=== PATIENT | female | born 1955 | race Caucasian/White ===

== ENCOUNTER 2020-04-27 07:53 | Outpatient (REF) | payer OTHER, SELFPAY ==
[2020-04-27 10:11] LABS: MANUAL DIFF FLAG NO
[2020-04-27 10:19] LABS: Basophils Percent Auto 0.5 % (0-2); Eosinophils Absolute Auto 0.1 X10*3/uL (0.0-0.4); Eosinophils Percent Auto 0.8 % (0-4); Hematocrit 46.3 % (37-47); Imm Gran Abs Auto 0.01 X10*3/uL (0.00-0.03); Imm Gran Pct Auto 0.2 % (0.0-0.4); Lymphocytes Absolute Auto 2.5 X10*3/uL (1.2-4.9); Lymphocytes Percent Auto 38.5 % (20-40); Mean Corpuscular HGB Conc 32.4 g/dl (31.0-35.0); Mean Corpuscular Hemoglobin 28.4 pg (27.0-33.0); Mean Corpuscular Volume 87.7 fL (80-98); Mean Platelet Volume 10.7 fL (9.4-12.3); Monocytes Absolute Auto 0.3 X10*3/uL (0.1-1.2); Monocytes Percent Auto 5.2 % (2-11); Neutrophils Absolute Auto 3.5 X10*3/uL (2.0-8.3); Neutrophils Percent Auto 54.8 % (45-73); Platelet Count 279 X10*3/uL (160-400); Red Blood Count 5.28 X10*6/uL (4.20-5.50); Red Cell Distribution Width 11.8 % (11.0-16.0); White Blood Count 6.4 X10*3/uL (4.8-10.8)
[2020-04-27 10:54] LABS: Free T4 (Free Thyroxine) 0.84 ng/dL (0.71-1.85); Thyroid Stimulating Hormone 3.85 uIU/mL (0.32-4.0); Vitamin D 25-OH Total 14.4 ng/mL (>30)
[2020-04-27 11:02] LABS: Alanine Aminotransferase 18 U/L (0-31); Albumin Level 3.8 g/dL (3.5-5.0); Alkaline Phosphatase 124 U/L (39-117); Anion Gap 13 (12-20); Aspartate Amino Transferase 10 U/L (5-31); Bilirubin Total 0.6 mg/dL (0.0-1.0); Blood Urea Nitrogen 13 mg/dL (9-16); C Reactive Protein 0.45 mg/dL (< or = 0.50); Calcium 8.6 mg/dL (8.4-10.2); Carbon Dioxide 29 mmol/L (22-29); Chloride 101 mmol/L (96-108); Cholesterol 212 mg/dL; Estimated Glomerular Filt Rate > 60; Glucose Fasting 368 mg/dL (60-99); HDL Cholesterol 50 mg/dL; LDL Cholesterol Calculated 134 mg/dl; Potassium 4.2 mmol/l (3.3-5.1); Sodium 139 mmol/L (135-145); Triglycerides 142 mg/dL
== END 2020-04-27 07:54 | disposition home or self-care (01) ==
LOC: HO.10HDL 07:53
PROVIDERS: Visit Provider Internal Medicine
DX: Z00.00 Encounter for general adult medical examination without abnormal findings (principal); I10 Essential (primary) hypertension; R63.4 Abnormal weight loss
CPT/HCPCS: 36415; 80053; 80061; 82306; 84439; 84443; 85025; 86140

== ENCOUNTER 2020-05-09 07:46 | Outpatient (REF) | payer OTHER, SELFPAY ==
[2020-05-09 10:41] LABS: Hemoglobin A1c % > 14.0 %
[2020-05-09 10:49] LABS: Glucose Fasting 340 mg/dL (60-99)
== END 2020-05-09 07:47 | disposition home or self-care (01) ==
LOC: HO.10HDL 07:46
PROVIDERS: Visit Provider Internal Medicine
DX: R73.9 Hyperglycemia, unspecified (principal)
CPT/HCPCS: 36415; 82947; 83036

== ENCOUNTER 2020-07-07 09:10 | Outpatient (REF) | payer OTHER, SELFPAY ==
--- NOTE | ~2020-07-07 | MM_ITS ---
EXAMINATION: MM SCREENING DIGITAL BREAST TOMOSYNTHESIS, BILATERAL CLINICAL INFORMATION: Screening. Asymptomatic. Prior history right LCIS. The lifetime risk of breast cancer based on the Tyrer-Cuzick Model is 40%. COMPARISON: Mammography: 09/27/2016, 07/25/2015 TECHNIQUE: Digital breast tomosynthesis is performed in both the craniocaudal and mediolateral oblique views along with computer-aided detection (CAD). Synthesized 2D images are generated from the tomosynthesis. FINDINGS: There are scattered areas of fibroglandular density (ACR BI-RADS breast composition Category b). There are no significant masses, abnormal calcifications, or other abnormalities. There is some minor scarring from prior lumpectomy central upper right breast on MLO view. Parenchyma is similar to prior exams. The axilla and skin contours are unremarkable. There are no significant changes from prior studies. MM/MM tomosynthesis screening BI IMPRESSION: No mammographic evidence of malignancy. ASSESSMENT: BI-RADS 2: Benign RECOMMENDATION: 1. Routine annual mammography screening. 2. The lifetime risk of breast cancer based on the Tyrer-Cuzick Model is 40%. Additional annual adjunct screening with breast MRI may be of benefit in women with a risk score of 20% or greater. This patient's information was entered into a reminder system with a target due date for their next mammogram.
--- NOTE | ~2020-07-07 | MM_ITS ---
EXAMINATION: BONE DENSITOMETRY CLINICAL INDICATION: Asymptomatic menopausal state. COMPARISON: Previous BD dated 09/27/2016 and baseline BD dated 12/25/2010. TECHNIQUE: Using a [employer] DXA System (software version: 13.1) manufactured by [employer], dual-energy x-ray absorptiometry was performed of the lumbar spine and left hip. The images are of good technical quality. Summary results are attached. FINDINGS: AP SPINE L1-L4 (excluding L3): The data of L1-L4 has been changed to exclude the L3 vertebral body, because degenerative changes at this level may cause overestimation of lumbar spine density. Current: BMD 1.056 g/cm2, Z-score 0.1, T-score -1.0, normal, 6.0% increase from previous, 1.1% increase from baseline (<5% change is not significant). Prior: BMD 0.996 g/cm2. Baseline: BMD 1.045 g/cm2. LEFT FEMUR, NECK: Current: BMD 0.902 g/cm2, Z-score 0.1, T-score -1.0, normal. Prior: BMD 0.944 g/cm2. Baseline: BMD 0.919 g/cm2. LEFT FEMUR, TOTAL: Current: BMD 1.050 g/cm2, Z-score 1.2, T-score 0.3, normal, 2.1% decrease from previous, 1.8% increase from baseline (<5% change is not significant). Prior: BMD 1.072 g/cm2. Baseline: BMD 1.031 g/cm2. IDENTIFIED RISK FACTORS: Menopause. HISTORY OF FRACTURE: None listed. MEDICATIONS: None listed. MM/XR DEXA axial skeleton IMPRESSION: 1. DIAGNOSIS: Normal bone density based on the lowest T-score value of -1.0 in the lumbar spine and femoral neck applying World Health Organization criteria. 2. 10-YEAR FRACTURE RISK PREDICTION, FRAX: Major osteoporotic fracture (clinical spine, forearm, hip or shoulder) 4.3%. Hip fracture 0.3%. 3. Treatment Recommendations: NOF guidelines recommend consideration for treatment in postmenopausal women and men age 50 and older presenting with the following: -A hip or vertebral (clinical or morphometric) fracture. -T-score less than or equal to -2.5 at the femoral neck or spine after appropriate evaluation to exclude secondary causes. -Low bone mass at the hip or spine and a 10-year fracture probability by FRAX of greater than or equal to 3% for hip fracture or greater than or equal to 20% for major osteoporotic fracture based on the [place] adapted WHO algorithm. 4. Other Recommendations: All treatment decisions require clinical judgment and consideration of individual patient factors, including patient preferences, comorbidities, previous drug use, risk factors not captured in the FRAX model (e.g. frailty, falls, vitamin D deficiency, increased bone turnover, interval significant decline in bone density) and possible under or overestimation of fracture risk by FRAX. FUTURE SCAN RECOMMENDATION: People with diagnosed cases of osteoporosis or at high risk for fracture should have regular bone mineral density tests. For patients eligible for Medicare, routine testing is allowed once every 2 years. The testing frequency can be increased to one year for patients who have rapidly progressing disease, those who are receiving or discontinuing medical therapy to restore bone mass, or have additional risk factors.
== END 2020-07-07 09:11 | disposition home or self-care (01) ==
LOC: HO.MAMMO 09:10
PROVIDERS: PCP Internal Medicine; Visit Provider Internal Medicine
DX: Z12.31 Encounter for screening mammogram for malignant neoplasm of breast (principal); Z13.820 Encounter for screening for osteoporosis; Z78.0 Asymptomatic menopausal state
CPT/HCPCS: 77063; 77067; 77080

== ENCOUNTER 2021-05-07 12:50 | Emergency (ER) | payer OTHER, SELFPAY ==
--- NOTE | 2021-05-07 13:09 | ECG_ITS ---
Test Reason : cardiac arrest Blood Pressure : / mmHG Vent. Rate : 102 BPM Atrial Rate : 094 BPM P-R Int : 144 ms QRS Dur : 126 ms QT Int : 382 ms P-R-T Axes : 067 -63 -58 degrees QTc Int : 497 ms Poor data quality Likely sinus rhythm Right bundle branch block Abnormal ECG No previous ECGs available Referred By: Corrie Fernandez Electronically Signed By:Forest Aponte
--- NOTE | 2021-05-07 13:42 | ED_ITS ---
HPI - CPR General Chief Complaint: Cardiac Arrest/CPR Stated Complaint: CARDIAC ARREST Time Seen by Provider: 05/07/21 13:08 Source: EMS Mode of arrival: EMS Limitations: other (ongoing CPR) History of Present Illness HPI narrative: EMS on scene 1211 - luis daniel airway EMS notes: epi several HCO3 calcium BS over 300 PEA then 3 minutes of sinus jasvir given 1 dose of atropine complaint: other (COVID positive x 1 week, shortness of breath x 3 days then collapsed at home) Onset (ago): hour(s) (EMS arrival 1211 so call around noon ) Timing confirmed by: family member Place: home Bystander CPR performed: No AED applied by bystander/upholsterer assembly line: No Shock advised: No Initial findings in the field: unresponsive, no respirations and PEA ROSC in the field: Yes (3 min sinus jasvir) Associated injuries: No Associated symptoms: shortness of breath (COVID x 1 week shortness of breath x 3 days then sudden collapse) Known history of: other (COVID ) Treatments prior to arrival: BMV, other airway device (luis daniel), chest compressions, epinephrine mgs # (6), atropine mgs # (1), sodium bicarbonate and calcium Related Data Allergies Allergy/AdvReac Type Severity Reaction Status Date / Time No Known Allergies Allergy Unverified 01/06/20 15:00 [No Known Allergies*] Review of Systems Review of Systems: ROS unable to be obtained due to ongoing CPR [facility] [place] Past Medical History Medical History Diabetes Social History Social History (Updated 05/07/21 @ 14:00 by Corrie Fernandez DO) Patient Tobacco Use Status: Never used Tobacco Advance Directives: No Advance Directives Information Provided: No Physical Exam Vital Signs: Appearance: Ongoing CPR, mottles in appearance, severe distress Eyes: fixed and dilated ENT: blood noted in airway, luis daniel airway in place Neck: Normal inspection. Neck supple. CVS: no spontaneous pulses, PEA on monitor, mottled appearance Respiratory: No respiratory distress. Breath sounds normal. Abdomen: Soft and no signs of trauma Skin: Cold and dependent lividity - mottled, very pale Extremities: No lower extremity edema. IO in lower leg Neuro: Fixed and dilated, no response to painful stimuli, no gag reflex Course Course Course Narrative: prolonged downtime almost 1.5 hours of CPR with intermittent ROSC then repeatedly losing pulses, attempt at tPa 50mg over 2 min for possible saddle embolus as cause no response and lost pulses again - after discussion with family it was deemed futile after almost 90 minutes of downtime without sustained ROSC - no pulses felt, fixed and dilated, no respirations, no cardiac sounds heard, time of 1336, PEA on monitor. family notified, recent COVID with collapse - I do no suspect trauma no need for ME MDM - Cardiac Arrest/CPR MDM Narrative Medical decision making narrative: 65 yo female with DM here with COVID - shortness of breath for 3 days then sudden collapse in front of family given this suspect massive embolus as cause of cardiac arrest - multiple rounds of epi, atropine with brief ROSC, IVF, intubation, tPa for presumed saddle embolus when unable to sustain pulses - discussion with family regarding care given almost 90 minutes of downtime ECG Data Attestation: I personally reviewed and interpreted this ECG as follows: ECG interpretation date: 05/07/21 ECG interpretation time: 14:32 Interpretation: Rate: 102 Rhythm: 102 undetermined artifact noted axis: left RBBB artifact noted, ST depressions noted laterally, no ARCHIE qtc 497 prior studies: none available The study has been interpreted contemporaneously by me. . Procedures Procedure Narrative Procedure Narrative: initial ECHO showed dilated RV with septal bowing ECHO at 1336 showed slight movement of aortic valve but no organized cont ractility noted Critical Care Time Critical Care Time Critical Care Time: Yes Total Critical Care Time: 60 Attestation: CPR, tPa administration, discussions with family, pharmacy consult I attest to this time spent taking care of the patient Discharge Plan Discharge Clinical Impression: Cardiac arrest Patient Disposition: Date/Time: 05/07/21 13:36
--- NOTE | 2021-05-07 13:46 | PC.NURSE ---
CALL TO [facility].
--- NOTE | 2021-05-07 13:49 | PC.NURSE ---
#[id number] [facility]
[2021-05-08 09:20] LABS: Glucose, Whole Blood 432 mg/dL (60-115)
== END 2021-05-07 18:11 | disposition expired ==
PROVIDERS: Emergency Provider Emergency Medicine; PCP Internal Medicine
DX: I46.9 Cardiac arrest, cause unspecified (principal); E11.9 Type 2 diabetes mellitus without complications; Z86.16 Personal history of COVID-19
CPT/HCPCS: 82947; 93005; 99281; 99291; J2997